=== PATIENT | male | born 1965 | race Caucasian/White ===

== ENCOUNTER 2016-06-13 07:12 | Emergency (ER) | payer OTHER ==
[~2016-06-13 07:12] MED LIST: AMBIEN (MONOGRAP5 MG PO; AMBIEN 10MG10 MG PO; COUMADIN 7.5 M7.5 MG PO; DOCUSATE SODIU100 MG PO; HYDRODIURIL 112.5 MG PO; LISINOPRIL/HCTZ1 TAB PO; LISINOPRIL10 MG PO; PERCOCET 325 MG1 TA2 PO; PERCOCET MONOGRA5 MG PO; VICODIN 300 MG-1 TAB PO; VICODIN 500 MG-1 TAB PO
[2016-06-13 07:27] VITALS: BP 153/100
[2016-06-13] MEDS ORDERED: AUGMENTIN 500-1 EACH PO (08:33)
--- NOTE | 2016-06-13 08:36 | ED SKIN/ALLERGY COMPLAINT ---
History of Present Illness General Chief Complaint: General Adult Stated Complaint: LEFT ELBOW INFECTION Source: patient Exam Limitations: no limitations Vital Signs & Intake/Output Vital Signs & Intake/Output Vital Signs Date Time Temp Pulse Resp B/P Pulse O2 O2 Flow FiO2 Ox Delivery Rate 06/13 0727 98.9 123 22 153/100 98 Allergies Coded Allergies: NO KNOWN ALLERGIES (10/12/13) Reconcile Medications Augmentin (Augmentin 500-125 Tablet) 500 MG-125 MG TABLET 1 TAB PO TID INFECTION Docusate Sodium 100 MG SGL 1 MG PO DAILY NEEDED PRN IF NO BM FOR 24HR LISINOPRIL/HYDROCHLOROTHIAZIDE (Lisinopril-Hctz 10-12.5 MG Tab) 10 MG-12.5 MG TABLET 1 TAB PO DAILY BLOOD PRESSURE (Reported) OXYCODONE HCL/ACETAMINOPHEN (Percocet 5-325 MG Tablet) 325 MG/5 MG TAB 1-2 TAB PO Q4P PRN PAIN SCALE 1-5 Warfarin Sodium (Coumadin) 7.5 MG TABLET 1 TAB PO DAILY BLOOD THINNER DOSE TO BE ADJUSTED FOR INR 2-3 Zolpidem Tartrate (Ambien 10MG) 10 MG TABLET 1 TAB PO QPM SLEEP (Reported) Triage Note: PER PT SMALL PAIN TO L ELBOW X 1 WEEK, THEN YESTERDAY DESPITE DAILY WASHING DRAINING AND MORE SWOLLEN PAINFUL. Triage Nurses Notes Reviewed? yes HPI: Patient presents for evaluation of left elbow swelling and drainage. Patient states that he nicked his elbow about 2 weeks ago and since then has had progressive redness and swelling. Over the past day or 2 the swelling worsened and he began experiencing a drainage from the elbow. He has been applying bleach to the area for possible infection. Denies any associated fever or cold symptoms. The pain worsens with palpation but not with movement of the elbow ( patient states he has been swinging a sledgehammer all week). Past History Travel History Traveled to [place] past 21 day No Medical History Any Pertinent Medical History? see below for history Neurological: NONE EENT: NONE Cardiovascular: hypertension Respiratory: NONE Gastrointestinal: NONE Hepatic: NONE Renal: NONE Musculoskeletal: BILAT HIP REPLACEMENT Psychiatric: NONE Endocrine: NONE History of MRSA: No History of VRE: No History of CDIFF: No Surgical History Surgical History: non-contributory Psychosocial History Who do you live with Spouse What is your primary language [place] Tobacco Use: Never used Family History Hx Contributory? No Review of Systems Review of Systems Constitutional: Reports: no symptoms. EENTM: Reports: no symptoms. Respiratory: Reports: no symptoms. Cardiovascular: Reports: no symptoms. GI: Reports: no symptoms. Genitourinary: Reports: no symptoms. Musculoskeletal: Reports: no symptoms. Skin: Reports: see HPI. Neurological/Psychological: Reports: no symptoms. Hematologic/Endocrine: Reports: no symptoms. Immunologic/Allergic: Reports: no symptoms. All Other Systems: Reviewed and Negative Physical Exam Physical Exam General Appearance: SEE BELOW Comments: Gen.: Well-nourished, well-developed, no acute respiratory distress. Head: Normocephalic, atraumatic. Eyes: Normal inspection bilaterally Ears: Normal inspection bilaterally Nose: Normal inspection, nasal cannula in place Throat/mouth : Moist mucosa Neck: Supple, full range of motion, no goiter Heart: Regular rate and rhythm Lungs: Quiet respirations Back: Normal range of motion Extremities: Left upper extremity: Redness and swelling over the left olecranon with an area of perforation and drainage proximally. Neurologic: Cranial nerves grossly intact, speech is clear Skin: warm and dry Psychiatric: Calm, cooperative, no apparent delusions or hallucinations Progress Differential Diagnosis: abscess/cellulitis, TRAUMATIC VERSUS SEPTIC BURSITIS Plan of Care: Antibiotics, warm compresses Comments: 06/13/2016 8:29:11 AM area of perforation/drainage prepped with Chloraseptic and an 18-gauge needle pasted with a scant amount of clear yellow fluid obtained. No apparent abscess formation. I feel the patient is suffering from a spontaneously ruptured traumatic bursitis and cellulitis. Plan antibiotics, warm compresses and reevaluation in 48-72 hours. Departure Departure Disposition: HOME OR SELF CARE Condition: Stable Clinical Impression Primary Impression: Cellulitis Qualifiers: Site of cellulitis: extremity Site of cellulitis of extremity: upper extremity Laterality: left Qualified Code: L03.114 - Cellulitis of left upper limb Secondary Impressions: Traumatic bursitis Referrals: YEIMY INMAN,MICHAEL Adams (PCP/Family) Additional Instructions: Augmentin as prescribed. Ibuprofen 800 mg every 8 hours as needed for pain. Warm compresses for 20 minutes at a time 2-3 times per day. Do not apply any other chemical solvents to the area (bleach, peroxide, alcohol). Follow-up with either your primary care physician or the orthopedic physician listed for reevaluation in 48-72 hours. Return if any concerns or sudden worsening. Departure Forms: Customer Survey General Discharge Information Prescriptions: Current Visit Scripts Augmentin (Augmentin 500-125 Tablet) 1 TAB PO TID #30 TAB
== END 2016-06-13 08:43 ==
LOC: ERH 07:12
DX: L03.114 Cellulitis of left upper limb (principal)

== ENCOUNTER 2017-12-24 09:13 | Emergency (ER) | payer OTHER ==
[~2017-12-24] VITALS: Ht 185.4 cm; Wt 104.3 kg
[~2017-12-24 09:13] MED LIST changes: +AUGMENTIN 500-1 EACH PO
--- NOTE | 2017-12-24 09:41 | ED UPPER/LOWER EXTREMITY COMPL ---
History of Present Illness General Chief Complaint: Upper Extremity Injury Stated Complaint: RT ELBOW PAIN Source: patient Exam Limitations: no limitations Vital Signs & Intake/Output Vital Signs & Intake/Output ED Intake and Output 12/25 0000 12/24 1200 Intake Total Output Total Balance Patient 230 lb Weight Weight Reported by Patient Measurement Method Allergies Coded Allergies: NO KNOWN ALLERGIES (10/12/13) Reconcile Medications Lisinopril (Prinivil) 10 MG TABLET 1 TAB PO DAILY BP (Reported) Oxycodone HCl/Acetaminophen (Percocet 5-325 MG Tablet) 5 MG-325 MG TABLET 1-2 TAB PO BID PAIN Zolpidem Tartrate 10 MG TABLET 1 TAB PO QPM SLEEP (Reported) Triage Note: TRIAGE: 52 Y/O MALE PRESENTS C/O RIGHT ELBOW PAIN SINCE TUESDAY MORNING. REPORTS MOVED [place] HAND AND THEN EXPERIENCED ELBOW PAIN. C/O ACHINESS - "THAT'S WHY I'M HERE." Triage Nurses Notes Reviewed? yes Onset: Abrupt Duration: day(s): Timing: recent history Severity: moderate, severe No Modifying Factors: none HPI: 52-year-old male comes into the emergency room with complaints of right elbow pain. Patient reports that he was reaching to grab the remote and he felt a pop in his right elbow. He reports he was doing some heavy lifting the day before that. Comes in for further evaluation. (Frantz Shafer) Past History Travel History Traveled to [place] past 21 day No Medical History Any Pertinent Medical History? see below for history Neurological: NONE EENT: NONE Cardiovascular: hypertension Respiratory: NONE Gastrointestinal: NONE Hepatic: NONE Renal: NONE Musculoskeletal: BILAT HIP REPLACEMENT Psychiatric: NONE Endocrine: NONE History of MRSA: No History of VRE: No History of CDIFF: No Surgical History Surgical History: non-contributory Psychosocial History Who do you live with Spouse What is your primary language Citizen [place] Tobacco Use: Never used ETOH Use: occasional use Illicit Drug Use: denies illicit drug use Family History Hx Contributory? No (Frantz Shafer) Review of Systems Review of Systems Constitutional: Reports: no symptoms. EENTM: Reports: no symptoms. Respiratory: Reports: no symptoms. Cardiovascular: Reports: no symptoms. Gastrointestinal/Abdominal: Reports: no symptoms. Genitourinary: Reports: no symptoms. Musculoskeletal: Reports: see HPI. Skin: Reports: no symptoms. Neurological/Psychological: Reports: no symptoms. Hematologic/Endocrine: Reports: no symptoms. Immunological: Reports: no symptoms. All Other Systems: Reviewed and Negative (Frantz Shafer) Physical Exam Physical Exam General Appearance: well developed/nourished, mild distress Head: atraumatic Eyes: Bilateral: normal appearance. Ears, Nose, Throat: normal ENT inspection, hearing grossly normal Neck: normal inspection Cardiovascular/Respiratory: no respiratory distress Back: normal inspection Elbow Right: joint effusion, soft tissue tenderness, limited range of motion Neurologic/Tendon: normal sensation, normal motor functions, normal tendon functions, responds to pain, no pulse deficit Skin: intact, normal color, warm/dry (Frantz Shafer) Progress Differential Diagnosis: contusion, fracture, septic arthritis, sprain, tendon injury Plan of Care: Orders Procedure Date/time Status Durable Medical Equipment 12/24 1040 Active Diagnostic Imaging: Viewed by Me: Radiology Read. Discussed w/RAD: Radiology Read. Radiology Impression: PATIENT: EH OLIVA JR PRESENT AGE: 52 PATIENT ACCOUNT NO: [id number] : 63 LOCATION: [facility] ORDERING PHYSICIAN: Frantz VALENTIN SERVICE DATE: 12/24/17 EXAM TYPE : RAD - XRY-ELBOW 3 OR MORE VIEWS, R EXAMINATION: XR ELBOW, RIGHT CLINICAL INFORMATION: Swelling. Right elbow pain. Question triceps tendon tear. COMPARISON: None TECHNIQUE: Four views of the right elbow. 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 There are enthesophytes adjacent the medial and lateral epicondyles. There is a well-corticated 2 cm ossific body seen ventrally consistent with an intra-articular body. A moderate to large joint effusion is likely present. There is dorsal soft tissue swelling at the level of the distal humerus. There is a spur or small osteochondroma of the ventral distal humeral shaft. No fracture seen. IMPRESSION: No acute osseous abnormality of the right elbow. In a background of severe extensive degenerative arthrosis, there is a joint effusion and dorsal soft tissue swelling as well as likely intra-articular bodies. The dorsal soft tissue swelling is nonspecific and could be seen in the setting of bursitis, hematoma, or abscess. This is in the expected location of the distal triceps tendon attachment so distal triceps tendon pathology is suspected. DICTATED BY: Chung Mendez MD DATE/TIME DICTATED:12/24/171017 BANKING SUPERVISOR:COREY DATE/TIME TRANSCRIBED:1017 CONFIDENTIAL, DO NOT COPY WITHOUT APPROPRIATE AUTHORIZATION. < Electronically signed in Other Vendor System> SIGNED BY: Chung Mendez MD 12/24/17 1025 (Frantz Shafer) Departure Departure Disposition: HOME OR SELF CARE Condition: Stable Clinical Impression Primary Impression: Triceps tendon rupture Secondary Impressions: Arthritis of right elbow Referrals: Maico INMAN,Gurinder Mott MD,Pedro Adams (PCP/Family) Additional Instructions: Follow-up with orthopedic doctor provided. Return if any concerns worsening symptoms. Please go over all results of today's visit with your primary care doctor. Contact your primary care doctor to let them know you were here in the emergency room. There may be nonspecific findings which may not be related to your visit today here in the emergency room but may require further evaluation and chronic monitoring by your primary care doctor. If you had a laceration today the chance of foreign body always remains. You should follow-up with your primary care doctor for recheck in 3-5 days for a wound check. If you had an x-ray done there is a chance that a fracture could have been missed on initial read and you should follow-up with your primary care doctor for repeat x-rays if symptoms persist. If your blood pressure was elevated here in the emergency room please have rechecked by [facility] primary care doctor within the next 48. If you were prescribed a narcotic here in the emergency room or any type of controlled substances you're not allowed to drive while taking this medication or operate any type of heavy machinery. Narcotics can make you feel lightheaded dizziness nausea and can cause constipation. You may need to product picker a stool softener. Thank you for choosing [facility] emergency room. Please return to the emergency room immediately if you have any other concerns worsening of symptoms. Departure Forms: Customer Survey General Discharge Information Prescriptions: Current Visit Scripts Oxycodone HCl/Acetaminophen (Percocet 5-325 MG Tablet) 1-2 TAB PO BID #15 TAB Comments 12/24/2017 11:29:40 AM Symptoms are most concerning for triceps tendon rupture. Referred to orthopedic doctor. (Frantz Shafer) PA/PATTERN CHAIN BUILDER Co-Sign Statement Statement: ED Attending supervision documentation- [] I saw and evaluated the patient. I have also reviewed all the pertinent lab results and diagnostic results. I agree with the findings and the plan of care as documented in the PA's/PATTERN CHAIN BUILDER's documentation. [X] I have reviewed the ED Record and agree with the PA's/PATTERN CHAIN BUILDER's documentation. [] Additions or exceptions (if any) to the PAs/PATTERN CHAIN BUILDER's note and plan are summarized below: [] (Gildardo INAMN,[facility]) Procedures Splinting Location: right elbow Manual Alignment Performed: No Pre-Made Type: shoulder mobilizer Splint Applied By: splint applied by me Pre-Proc Neuro Vasc Exam: normal Post-Proc Neuro Vasc Exam: normal (Frantz Shafer)
[2017-12-24] MEDS ORDERED: ZOLPIDEM TARTRA10 M1 PO (09:50)
[2017-12-24] MEDS ORDERED: PRINIVIL10 M1 PO (09:50)
--- NOTE | 2017-12-24 10:25 | RADIOLOGY REPORT ---
EXAMINATION: XR ELBOW, RIGHT CLINICAL INFORMATION: Swelling. Right elbow pain. Question triceps tendon tear. COMPARISON: None TECHNIQUE: Four views of the right elbow. 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 There are enthesophytes adjacent the medial and lateral epicondyles. There is a well-corticated 2 cm ossific body seen ventrally consistent with an intra-articular body. A moderate to large joint effusion is likely present. There is dorsal soft tissue swelling at the level of the distal humerus. There is a spur or small osteochondroma of the ventral distal humeral shaft. No fracture seen. IMPRESSION: No acute osseous abnormality of the right elbow. In a background of severe extensive degenerative arthrosis, there is a joint effusion and dorsal soft tissue swelling as well as likely intra-articular bodies. The dorsal soft tissue swelling is nonspecific and could be seen in the setting of bursitis, hematoma, or abscess. This is in the expected location of the distal triceps tendon attachment so distal triceps tendon pathology is suspected.
[2017-12-24 10:43] VITALS: BP 138/98
[2017-12-24] MEDS ORDERED: PERCOCET 5-3251 EACH PO (10:45)
== END 2017-12-24 10:44 ==
LOC: ERH 09:13
DX: S46.311A Strain of muscle, fascia and tendon of triceps, right arm, initial encounter (principal); M19.021 Primary osteoarthritis, right elbow; X58.XXXA Exposure to other specified factors, initial encounter; Y93.89 Activity, other specified
CPT/HCPCS: 73080-RT